=== PATIENT | female | born 1965 | race Caucasian/White ===

== ENCOUNTER 2019-06-11 13:51 | Outpatient (CLI) | payer BC, SELFPAY ==
--- NOTE | ~2019-06-11 | CT_ITS ---
EXAMINATION: CT abdomen pelvis w con DATE: 06/11/2019 14:31 INDICATION: Left lower quadrant abdominal pain. TECHNIQUE: Computed tomography (CT) of the abdomen and pelvis was performed with 100 mL Omnipaque 350 intravenous contrast. Automated exposure control and iterative reconstruction technique were employe d. The dose-length product was 773.35 mGy-cm. COMPARISON: None. FINDINGS: The visualized portions of the lung bases demonstrate mild atelectasis. No pleural effusion . The heart size is normal. No pericardial effusion. There is a small sliding hiatal hernia. The live r and spleen are normal. There are gallstones in the gallbladder, which is normal in size. The pancre as, adrenal glands, and kidneys are normal. There is an intrauterine device in expected position. The re are scattered diverticula in the colon. There is fat stranding around an epiploic appendage of sig moid colon, consistent with epiploic appendagitis. The appendix is normal. There are no pathologicall y enlarged lymph nodes. There is no free intraperitoneal fluid. There is severe thoracic spondylosis and moderate lumbar spondylosis. IMPRESSION: 1. Epiploic appendagitis of sigmoid colon. Reviewed, dictated and finalized at location A.
[2019-06-11 14:20] LABS: Estimated Glomerular Filt Rate > 60
[2019-06-11 15:14] LABS: Basophils Absolute Auto 0.1 K/mm3 (0.0-0.1); Basophils Percent Auto 0.7 % (0.2-1.2); Eosinophils Absolute Auto 0.3 K/mm3 (0-0.3); Eosinophils Percent Auto 3.7 % (0-4.4); Hematocrit 40.2 % (37.0-47.0); Immature Granulocyte Absolute 0.06 K/mm3 (0.00-0.031); Immature Granulocyte Percent A 0.7 % (0-0.5); Lymphocytes Absolute Auto 2.42 K/mm3 (0.9-3.2); Lymphocytes Percent Auto 26.5 % (18.3-44.2); Mean Corpuscular HGB Conc 32.3 g/dl (32-36); Mean Corpuscular Hemoglobin 29.5 pg (26-34); Mean Corpuscular Volume 91.4 fl (80-100); Mean Platelet Volume 8.9 fl (7.4-10.4); Monocytes Absolute Auto 0.7 K/mm3 (0.1-0.6); Monocytes Percent Auto 7.4 % (2.6-8.5); Neutrophils Absolute Auto 5.6 K/mm3 (1.3-6.7); Platelet Count Result 333 k/mm3 (150-375); Red Cell Distribution Width 12.6 % (11.5-14.5); White Blood Count 9.1 K/mm3 (4.5-10.0)
[2019-06-11 15:26] LABS: Alanine Aminotransferase 37 U/L (4-35); Albumin Level 4.2 g/dL (3.5-5.1); Alkaline Phosphatase 121 U/L (38-126); Aspartate Amino Transferase 36 U/L (14-36); Bilirubin,Total 0.6 mg/dL (0.2-1.3); Blood Urea Nitrogen 14 mg/dL (7-17); Calcium 9.8 mg/dL (8.4-10.2); Carbon Dioxide 28 mmol/L (22-30); Chloride 101 mmol/L (98-107); Estimated Glomerular Filt Rate > 60; Glucose 178 mg/dL (65-105); Potassium 3.9 mmol/L (3.4-5.0); Sodium 138 mmol/L (137-145)
== END 2019-06-11 13:52 | disposition home or self-care (01) ==
PROVIDERS: PCP Family Medicine; Visit Provider Family Medicine
DX: R10.32 Left lower quadrant pain (principal); K63.89 Other specified diseases of intestine
CPT/HCPCS: 36415; 74177; 80053; 85025; Q9967

== ENCOUNTER 2019-06-16 08:14 | Outpatient (CLI) | payer BC, SELFPAY ==
[2019-06-16 08:44] LABS: Hemoglobin A1C 6.9 % (<5.7)
[2019-06-16 08:45] LABS: Alanine Aminotransferase 32 U/L (4-35); Albumin Level 4.4 g/dL (3.5-5.1); Alkaline Phosphatase 110 U/L (38-126); Aspartate Amino Transferase 28 U/L (14-36); Bilirubin,Total 0.8 mg/dL (0.2-1.3)
== END 2019-06-16 08:15 | disposition home or self-care (01) ==
PROVIDERS: PCP Family Medicine; Visit Provider Nurse Practitioner Family
DX: R73.09 Other abnormal glucose (principal); R74.0 Nonspecific elevation of levels of transaminase and lactic acid dehydrogenase [LDH]
CPT/HCPCS: 36415; 80076; 83036

== ENCOUNTER → 2020-03-21 10:20 | Outpatient (CLI) | payer BC, SELFPAY ==
--- NOTE | ~2020-03-21 | MM_ITS ---
EXAMINATION: MM screening linsey BI w donna HISTORY: Screening mammogram TECHNIQUE: Craniocaudal and mediolateral oblique 3-D tomosynthesis images were obtained and synthetic 2-D images were generated. CAD analysis was submitted and interpreted. COMPARISON: 03/13/2016, 02/01/2012 bilateral digital screening mammogram examinations BREAST PARENCHYMAL COMPOSITION: There are scattered areas of fibroglandular density. FINDINGS: There is no evidence of suspicious mass, calcification, or architectural distortion to sugg est malignancy in either breast. There has been no suspicious interval change. IMPRESSION: 1. No mammographic evidence of malignancy. 2. Recommend routine screening mammography in one year. BI-RADS Category 1: Negative Reviewed, dictated and finalized at location A. OW UP SPECIALIST
--- NOTE | ~2020-03-21 | US_ITS ---
EXAMINATION: US transvaginal EXAM DATE: 03/21/2020 10:50 INDICATION: Pelvic pain. TECHNIQUE: Pelvic transabdominal and transvaginal sonogram was performed. There are multiple graysca le and Doppler images available for interpretation. Comparison is made to prior examination from 05/26. FINDINGS: Uterus measures 8.3 x 3.7 x 5.5 cm, with a focal region probably fibroid measuring 3 cm. T here is an IUD identified within the endometrial cavity. Endometrial stripe measures 5 mm, within nor mal limits. There is no free pelvic fluid. Right adnexa: The ovary measures 1.7 x 1.9 x 2.3 cm and is morphologically normal. Ovarian vascular f low confirmed. Left adnexa: The ovary measures 1.3 x 0.9 x 1.5 cm and is morphologically normal. Ovarian vascular fl ow confirmed. IMPRESSION: 1. IUD in position. 2. Fibroid. Reviewed, dictated and finalized at location B. NTRY OPERATIONS SPECIALIST
== END ==
PROVIDERS: PCP Family Medicine; Visit Provider Nurse Practitioner
DX: Z12.31 Encounter for screening mammogram for malignant neoplasm of breast (principal); D25.9 Leiomyoma of uterus, unspecified; Z97.5 Presence of (intrauterine) contraceptive device
CPT/HCPCS: 76830; 77063; 77067

== ENCOUNTER → 2020-10-18 14:30 | Outpatient (CLI) | payer BC, SELFPAY ==
--- NOTE | ~2020-10-18 | US_ITS ---
EXAMINATION: US transvaginal DATE: 10/18/2020 14:58 INDICATION: Postmenopausal bleeding TECHNIQUE: Multiple endovaginal sonographic images of the pelvis were obtained. COMPARISON: 03/21/2020 FINDINGS: The uterus measures 7.9 x 4.2 x 5.1 cm. A 2.3 x 2.1 cm hypoechoic mass of the right uterine fundus has the appearance of an intramural fibroid. A 1.0 x 0.7 x 0.7 cm hypoechoic mass in the left uterine fundus also has the appearance of an acute marrow fibroid. The endometrial complex measures 6 mm. An IUD is present in expected position. The ovaries are not visualized however no adnexal abnor mality is seen. There is no free fluid in the pelvis. IMPRESSION: 1. No sonographic correlate for the patient's symptoms. Reviewed, dictated and finalized at location B.
== END ==
PROVIDERS: Visit Provider Obstetrics & Gynecology Gynecology
DX: N95.0 Postmenopausal bleeding (principal)
CPT/HCPCS: 76830

== ENCOUNTER 2021-04-26 09:13 | Outpatient (CLI) | payer BC, SELFPAY ==
--- NOTE | 2021-04-26 10:00 | ECG_ITS ---
Measurements Intervals [place] Rate: 75 P: 51 WA: 163 QRS: 16 QRSD: 102 T: 40 QT: 415 QTc: 466 Interpretive Statements SINUS RHYTHM DELAYED PRECORDIAL R/S TRANSITION CONSIDER INFERIOR INFARCT, AGE INDETERMINATE ABNORMAL ECG Electronically Signed On 04-26-2021 10:13:41 INGREDIENT MIXER by Sreedhar Clements D.O.
[2021-04-26 10:25] LABS: Potassium 3.9 mmol/L (3.4-5.0)
== END 2021-04-26 09:14 | disposition home or self-care (01) ==
LOC: ANHLAB 09:17
DX: I10 Essential (primary) hypertension (principal)
CPT/HCPCS: 36415; 84132; 93005

== ENCOUNTER → 2021-11-28 11:00 | Outpatient (CLI) | payer BC, SELFPAY ==
--- NOTE | ~2021-11-28 | XR_ITS ---
EXAM: XR pelvis 1-2V, XR lumbar spine 2-3V, XR sacroiliac joints min 3V DATE: 11/28/2021 11:37 HISTORY: Chronic right lower back pain . COMPARISON: None available. FINDINGS: 5 nonrib-bearing lumbar-type vertebral bodies. Pedicles intact. Normal vertebral body alignment. Vert ebral body heights preserved. Mild L4-5 and moderate L5-S1 disc space narrowing. Multilevel moderate facet sclerosis and hypertrophy. No fracture or dislocation. Normal mineralization. No fracture or dislocation. No lytic or blastic lesion. Narrowing, sclerosis a nd osteophytosis of the bilateral SI joints. Mild bilateral hip joint space narrowing sclerosis and s ubchondral cyst formation greater on the right. Mild degenerative change of the pubic symphysis. No e rosion or periosteal change. IUD, in good position. Pelvic phleboliths. IMPRESSION: Bilateral symmetric sacroiliitis. Lower lumbar degenerative disc disease and facet arthro alberto. Mild bilateral hip osteoarthritis, worse on the right. Mild osteitis pubis. Reviewed, dictated and finalized at location K. IMPRESSION: Bilateral symmetric sacroiliitis. Lower lumbar degenerative disc di sease and facet arthropathy. Mild bilateral hip osteoarthritis, worse on the ri ght. Mild osteitis pubis. IMPRESSION: Bilateral symmetric sacroiliitis. Lower lumbar degenerative disc di sease and facet arthropathy. Mild bilateral hip osteoarthritis, worse on the ri ght. Mild osteitis pubis.
== END ==
PROVIDERS: PCP Family Medicine; Visit Provider Chiropractor
DX: M53.3 Sacrococcygeal disorders, not elsewhere classified (principal); M51.36 Other intervertebral disc degeneration, lumbar region; M16.0 Bilateral primary osteoarthritis of hip
CPT/HCPCS: 72100; 72170; 72202

== ENCOUNTER 2022-02-14 10:30 | Outpatient (RCR) | payer BC, SELFPAY | END 2022-03-20 11:32 | disposition home or self-care (01) | LOC: ANHDMC 10:30 | PROVIDERS: PCP Family Medicine; Visit Provider Family Medicine | DX: E11.65 Type 2 diabetes mellitus with hyperglycemia (principal); Z71.89 Other specified counseling | CPT/HCPCS: G0108 ==

== ENCOUNTER 2022-05-15 13:44 | Outpatient (CLI) | payer BC, SELFPAY ==
--- NOTE | 2022-05-15 13:53 | ECHO_ITS ---
Patient Info Name: Tonja Marc Age: 56 years : 1965 Gender: Female Ht: 63 in Wt: 167 lbs BSA: 1.86 m2 HR: 63 bpm BP: 129 / 85 mmHg Technical Quality: Fair Exam Date: 05/15/2022 2:15 PM Exam Location: [facility] Patient Status: Outpatient Admit Date: 05/15/2022 Staff Ordering Physician: Lula Shannon PAC Manager Sap: Harpal Lock RDCS, RT Attending Provider: Lula Shannon Referring Physician: Shiva CAUSEY; Exam Type: CA echo doppler color flow Study Info Indications R01.1 - Cardiac murmur, unspecified Complete two-dimensional, color flow and Doppler transthoracic echocardiogram is performed. Strain analysis performed. Summary 1. Complete two-dimensional, color flow and Doppler transthoracic echocardiogram is performed. 2. Left ventricular chamber dimension is normal. 3. Left ventricular systolic function is normal, estimated at 60-65%. 4. There is mild concentric increased left ventricular wall thickness. 5. The left ventricular diastolic function is grade I diastolic dysfunction. 6. E/e' 9 is minimally elevated. 7. Global longitudinal strain is normal at -17.9%. 8. There is trace tricuspid valve regurgitation. 9. Normal inferior vena cava with >50% collapse upon inspiration consistent with elevated right atrial pressure, 10 mmHg. 10. There is trivial pericardial effusion. Left Ventricle E/e' 9 is minimally elevated. Global longitudinal strain is normal at -17.9%. Left ventricular chamber dimension is normal. Left ventricular systolic function is normal, estimated at 60-65%. There is mild concentric increased left ventricular wall thickness. The left ventricular diastolic function is grade I diastolic dysfunction. Right Ventricle Right ventricular systolic function is normal and with normal TAPSE 1.9 cm. Right ventricular chamber dimension is normal. Left Atria Left atrial chamber dimension is normal. Right Atria Right atrial chamber dimension is normal. Aortic Valve The aortic valve is trileaflet. There is no aortic valve stenosis. There is no aortic valve regurgitation. Pulmonic Valve There is no pulmonic regurgitation. Mitral Valve There is no mitral valve stenosis. There is no mitral valve regurgitation. Tricuspid Valve RVSP is not calculated due to an inadequate TR jet. There is trace tricuspid valve regurgitation. Pericardium/Pleural There is trivial pericardial effusion. Inferior Vena Cava Normal inferior vena cava with >50% collapse upon inspiration consistent with elevated right atrial pressure, 10 mmHg. Aorta The aortic root size at the sinus of Valsalva is normal. Left Ventricular Outflow Tract Name Value Normal LVOT 2D LVOT Diameter 1.9 cm LVOT Doppler LVOT Peak Gradient 4 mmHg LVOT Mean Gradient 2 mmHg LVOT VTI 24 cm LVOT VTI/AV VTI Ratio 0.7 LVOT Stroke Volume 66 ml LVOT CO 4.1 l/min LVOT CI 2.2 l/min
== END 2022-05-15 13:45 | disposition home or self-care (01) ==
PROVIDERS: PCP Family Medicine; Visit Provider Physician Assistant Medical
DX: R01.1 Cardiac murmur, unspecified (principal)
CPT/HCPCS: 93306

== ENCOUNTER 2022-05-21 16:00 | Outpatient (RCR) | payer BC, SELFPAY | END 2022-06-17 13:53 | disposition home or self-care (01) | LOC: ANHDMC 16:00 | PROVIDERS: PCP Family Medicine; Visit Provider Family Medicine | DX: E11.65 Type 2 diabetes mellitus with hyperglycemia (principal); Z71.89 Other specified counseling | CPT/HCPCS: G0108 ==

== ENCOUNTER 2024-06-29 09:03 | Outpatient (RCR) | payer BC, SELFPAY | END 2024-09-20 13:56 | disposition home or self-care (01) | LOC: ANHDMC 09:03 | PROVIDERS: PCP Family Medicine; Visit Provider Internal Medicine | DX: E11.69 Type 2 diabetes mellitus with other specified complication (principal); E11.65 Type 2 diabetes mellitus with hyperglycemia; E66.9 Obesity, unspecified; Z71.89 Other specified counseling | CPT/HCPCS: G0108 ==

== ENCOUNTER 2024-08-02 03:28 | Emergency (ER) | payer BC, SELFPAY ==
[2024-08-02] VITALS (15 sets, daily range): BP systolic 130–220; BP diastolic 89–120; PULSE 58–87; RESP 5–23; TEMP 36.6–36.7; O2SAT 93–100
--- NOTE | ~2024-08-02 | XR_ITS ---
Portable chest x-ray Comparison: None Clinical History: Chest Findings: Lungs are clear, without focal consolidation or pleural effusion. Cardiomediastinal silho uette is unremarkable. Bones and soft tissues are unremarkable. Impression: Normal chest. Reviewed, dictated and finalized at location M. Impression: Normal chest.
--- NOTE | ~2024-08-02 | US_ITS ---
Limited ABDOMINAL ULTRASOUND (Doppler ultrasound interrogation techniques used as needed for this exmalachi m.) Ordering provider: Adam Mallory MD History: . Cholelithiasis, pericholecystic inflammation . Comparison: None. FINDINGS: PANCREAS: Not demonstrated. PORTAL VEIN: Hepatopedal flow demonstrated. LIVER: Normal size and increased echotexture. No focal hepatic lesions or perihepatic fluid collectio ns are identified. BILIARY DUCTS: No intra or extrahepatic biliary dilation. Common bile duct measures 3 mm in diameter which is normal for patient's age. GALLBLADDER: Cholelithiasis with large stones. One stone measures 2.5 x 0.7 x 1.8 cm No sludge, gallb ladder wall thickening or pericholecystic fluid. Wall thickness is 1.1 mm. Positive sonographic Shobha y's sign. FREE FLUID: None visualized within the upper abdomen. IMPRESSION: Cholelithiasis with positive Lock's sign which raises the possibility of cholecystitis although no wall thickening or pericholecystic fluid seen. Clinical correlation advised. Fat infiltration of the liver. Reviewed, dictated and finalized at location A. IMPRESSION: Cholelithiasis with positive Lock's sign which raises the possibility of chol ecystitis although no wall thickening or pericholecystic fluid seen. Clinical c orrelation advised. Fat infiltration of the liver.
--- NOTE | ~2024-08-02 | CT_ITS ---
Clinical Indication: Chest pain, dissection CT Scan of the Chest, Abdomen, and Pelvis with Contrast: Technique: Contiguous sections were acquired throughout the chest, abdomen, and pelvis after intraven ous administration of 100 cc of Omnipaque 350. Dose reduction technique was used on this scan by uti hennaing automated exposure control and iterative reconstruction technique. The dose-length product (DL P) was 748.81 mGy-cm. Findings: There is no evidence of any significant mediastinal, hilar or axillary lymphadenopathy. The mediastin al soft tissues appear normal. No pulmonary embolus. No aortic aneurysm or dissection. There is no evidence of pleural or pericardial effusion. The lungs are clear. No pulmonary nodules or infiltrates are noted. The liver, spleen, pancreas, adrenals and kidneys are within normal limits. Cholelithiasis noted. No evidence of aortic aneurysm or dissection. No lymphadenopathy. No bowel obstruction or bowel wall thickening. There is no evidence to suggest acute appendicitis. Urinary bladder is unremarkable. No pelvic mass. No ascites. Impression: No aortic aneurysm or dissection. Cholelithiasis. Reviewed, dictated and finalized at [facility]. Impression: No aortic aneurysm or dissection. Cholelithiasis.
--- NOTE | 2024-08-02 03:29 | ECG_ITS ---
Test Date: 2024-08-02 03:36:28 Measurements Intervals [place] Rate: 69 P: 26 WV: 151 QRS: 7 QRSD: 97 T: 50 QT: 407 QTc: 437 Interpretive Statements SINUS RHYTHM INFERIOR MYOCARDIAL INFARCTION , PROBABLY OLD [40+ ms Q WAVE AND/OR ST/T ABNORMALITY IN II/aVF] No previous ECG available for comparison Electronically Signed On 08-02-2024 06:43:56 CDT by Octavio Horowitz M.D.
--- OUTSIDE RECORDS SUMMARY | 2024-08-02 03:30 | XMS_ITS | Clinical Summary ---
Author Organization [facility] Address [address] [place] [id number] Care Team Providers Care Agricultural Agent Name Role Phone Elmer Rowe MD Primary Care Provider + [phone] Allergies No known active allergies Medications metFORMIN XR (GLUCOPHAGE XR) 500 mg 24 hr tablet Take 2 tablets (1,000 mg total) by mouth 2 (two) times a day 08/23/2022 Active Ozempic 2 mg/dose (8 mg/3 mL) pen injector injection Inject 2 mg under the skin once a week 08/23/2022 Active levothyroxine (SYNTHROID) 25 mcg tablet Take 1 tablet (25 mcg total) by mouth daily 08/14/2022 Active rosuvastatin (CRESTOR) 20 mg tablet Take 1 tablet (20 mg total) by mouth daily 08/14/2022 Active lisinopril-hydr oCHLOROthiazide (ZESTORETIC) 20-12.5 mg per tablet Take 2 tablets by mouth daily 08/14/2022 Active estradioL (ESTRACE) 1 mg tablet Take 1 tablet (1 mg total) by mouth daily 07/15/2022 Active multivitamin tablet Take by mouth daily Active Active Problems Problem Noted Date Diagnosed Date Cardiac murmur 08/27/2022 Assessment & Plan (08/27/2022 5:55 PM CDT): She has a benign sounding systolic murmur on exam which is likely a flow murmur based on the characteristics as well as recent outside echo which by report did not show any significant valvular disease or other pathology. Therefore no further workup needed for the murmur at this time Primary hypertension 08/27/2022 Assessment & Plan (08/27/2022 5:56 PM CDT): Blood pressure is currently suboptimally controlled on 2 agent regimen in the office - however discussed possibility of white coat hypertension given that she had been adequately controlled until more recent checks. Blood pressure goal given her age and comorbidities of diabetes would be less than 130/80 which we discussed. I recommended that she check her blood pressure daily for a 2 week or more timeframe at home to determine her ambulatory BP, and if elevated on ambulatory readings then we can escalate therapy - for now continue lisinopril-HCTZ 40-25 - can add amlodipine if ambulatory blood pressure above 130/80 LVH (left ventricular hypertrophy) 08/27/2022 Assessment & Plan (08/27/2022 5:54 PM CDT): By her outside echo report she has mild left ventricular hypertrophy which is most likely related to her history of chronic hypertension. 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 Gender Identity Not on file Sexual Orientation Not on file Obstetrics History Last Filed Vital Signs Vital Sign Reading Time Taken Comments Blood Pressure 138/88 08/27/2022 3:09 PM CDT Pulse 84 08/27/2022 3:03 PM CDT Temperature - - Respiratory Rate - - Oxygen Saturation - - Inhaled Oxygen Concentration - - Weight 78.9 kg (174 lb) 08/27/2022 3:03 PM CDT Height 160 cm (5' 3 ) 08/27/2022 3:03 PM CDT Body Mass Index 30.82 08/27/2022 3:03 PM CDT Plan of Treatment Health Maintenance Due Date Last Done Comments Breast Cancer Screening-Mammogram 1965 Cervical Cancer Screening 1965 Colon Cancer Screening-Colonoscopy 1965 Depression Screening 1965 Hepatitis C Screening 1965 Hepatitis B Screening 1981 Regular Well Visit/Exam 18-64 1981 Covid-19 Vaccine ( season) 2023 01/14/2022, 01/23/2021, 06/23/2020, Additional history exists Influenza Vaccine (#1) 2023 2, 01/23/2021, 01/28/2020 DTaP/Tdap/Td Vaccine (2 - Td or Tdap) 08/18/2031 08/17/2021 Zoster Vaccine Completed 01/14/2022, 01/28/2020 Pneumococcal vaccine <65 Aged Out No longer eligible based on patient's age to complete this [place] [id number] [place] [id number] [place] [phone] Care Teams Agricultural Agent Relationship Specialty Start Date End Date Elmer Rowe MD PCP - General Family Medicine 06/06/22
--- OUTSIDE RECORDS SUMMARY | 2024-08-02 03:30 | XMS_ITS | Clinical Summary ---
Author Organization [facility] Address [address], [address] [address] Phone Care Team Providers Care Director Of Rehabilitation Name Role Phone Elmer Rowe MD Primary Care Provider [phone] Medications polyethylene glycol (MIRALAX) Powder Use entire 255g bottle with 64oz of clear liquid as directed for colonoscopy prep. 255 g 0 7 Active Social History Tobacco Use Types Packs/Day Years Used Date Smoking Tobacco: Never Assessed Comments Unknown Sex and Gender Information Value Date Recorded Sex Assigned at Not on file Legal Sex Female 12:21 AM CDT Gender Identity Not on file Sexual Orientation Not on file Plan of Treatment Health Maintenance Due Date Last Done Comments Hepatitis C Virus (HCV) Screening 1965 TdaP Immunization 1965 Pap Smear 1984 Cervical Cancer Screening (CCS) 1993 HPV/Cotest 1993 Cologuard 2013 Immunochemical Fecal Occult Blood 2013 Mammogram 2013 Pneumococcal Immunization (5 0+ years) (1 of 1 - PCV) 2013 Zoster Immunization (1 of 2) 2013 Influenza Immunization (#1) 2023 SARS-COV-2 Immunization ( - season) 2023 Colonoscopy 05/08/2027 05/08/2017 Colorectal Cancer Screening 05/08/2027 Respiratory Syncytial Virus (RSV) Immunization (Adult) (1 - 1-dose 75+ series) 2038 05/08/2017 Hepatitis B Immunization Aged Out No longer eligible based on patient's age to complete this topic Meningococcal Immunization (ACWY) Aged Out No longer eligible based on patient's age to complete this topic Pneumococcal Immunization Combined Aged Out No longer eligible based on patient's age to complete this topic Rotavirus Immunization Aged Out No lo nger eligible based on patient's age to complete this topic Procedures Procedure Name Priority Date/Time Associated Diagnosis Comments COLONOSCOPY Routine 05/08/2017 from Last 3 Months or Most Recently Relevant to Health Maintenance Results * COLONOSCOPY (05/08/2017) Ángel Torey Tobias DO PROCEDURE/MINOR SURGICAL ORDERA BLES Final Result from Last 3 Months or Most Recently Relevant to Health Maintenance Insurance [facility] Care Teams Director Of Rehabilitation Relationship Specialty Start Date End Date Elmer Rowe MD [address] [place] [id number] PCP - General Family Medicine 03/28/16
--- OUTSIDE RECORDS SUMMARY | 2024-08-02 03:30 | XMS_ITS | Clinical Summary ---
Author Organization [facility] [employer] Address [address] [place] [address] Care Team Providers Care Aquatics Instructor Name Role Phone Elmer Rowe MD Primary Care Provider [phone] Source Comments [facility] [employer],non-owned Affiliates and Associated Physician Practices is amultiple site organization consisting of ambulatory clinics and hospital sitesin [place], [place], [place] and [place]. This disclosure is being madepursuant to the Care Everywhere program and may not contain all information available regarding this patient. Last updated 17.[facility] [employer] Allergies No known active allergies Medications * Be aware that medications may not be up to date on this document. Alwaysverify current medications with the patient. estradiol (ESTRACE) 0.5 MG tablet Take 1 tablet by mouth Active lisinopril-hydro CHLOROthiazide (PRINZIDE; ZESTORETIC) 10-12.5 MG tablet Take 1 tablet by mouth once daily Active Multiple Vitamin (MULTI-VITAMIN DAILY PO) Active BIOTIN PO Active Active Problems Problem Noted Date Diagnosed Date Osteoarthrosis 07/23/2021 Tear of lateral meniscus of knee 01/04/2019 Varicose veins of bilateral lower extremities wi th pain 03/05/2018 Family History Medical History Relation Name Comments CAD (Coronary Artery Disease) Father Diabetes - Type 2 Father None Known Maternal Grandfather None Known Maternal Grandmother Aneurysm, Brain Mother Diabetes - Type 2 Mother Hypertension Mother Osteoporosis Mother None Known Paternal Grandfather Diabetes - Type 2 Paternal Grandmother Relation Name Status Comments Father Maternal Grandfather Maternal Grandmother Mother Paternal Grandfather Paternal Grandmother Social History Tobacco Use Types Packs/Day Years Used Date Smoking Tobacco: Never Smokeless Tobacco: Never Alcohol Use Standard Drinks/Week Comments Yes 0 (1 standard drink = 0.6 oz pur e alcohol) Comments No Sex and Gender Information Value Date Recorded Sex Assigned at Not on file 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 Gender Identity Not on file Sexual Orientation Not on file Last Filed Vital Signs Vital Sign Reading Time Taken Comments Blood Pressure 126/76 10/10/2021 2:20 PM CDT Pulse - - Temperature - - Respiratory Rate - - Oxygen Saturation - - Inhaled Oxygen Concentration - - Weight 80.7 kg (178 lb) 10/10/2021 2:20 PM CDT Height 160 cm (5' 3 ) 10/10/2021 2:20 PM CDT Body Mass Index 31.53 10/10/2021 2:20 PM CDT Plan of Treatment Health Maintenance Due Date Last Done Comments COLOGUARD (AGES 45-75) - COL ON CA SCREENING 1965 COLON MONITORING 1965 COLONOSCOPY - COLON CA SCREENING 1963 CT COLONOGRAPHY - COLON CA SCREENING 1965 Colorectal Cancer Screening 1965 FIT - COLON CA SCREENING 1965 FLEX SIG - COLON CA SCREENING 1965 LIPID TESTING 1965 MAMMOGRAM 1963 HIV SCREENING 1978 HEPATITIS C SCREENING 05/15/1981 DTAP/TDAP/TD VACCINES (1 - Tdap) 1982 PNEUMOCOCCAL VACCINE 50+ (1 of 1 - PCV) 2013 ZOSTER VACCINE (1 of 2) 2013 PAP SMEAR 03/03/2020 03/03/2017 SCREENING FOR DIABETES 07/23/2021 COVID-19 VACCINE (1 - 2023-2 5 season) 2023 DEPRESSION SCREENING 03/31/2024 INFLUENZA VACCINE (Season Ended) 2024 Respiratory Syncytial Virus (RSV) Vaccine Pt: or over 60 yrs (1 - 1-dose 75+ series) 2038 HEPATITIS B VACCINE Aged Out No longe r eligible based on patient's age to complete this topic HIB VACCINE Aged Out No longer eligi ble based on patient's age to complete this topic HPV VACCINE Aged Out No longer eligi ble based on patient's age to complete this topic MENINGOCOCCAL (Group B) VACC INE SHARED DECISION-MAKING Aged Out No longer eligibl e based on patient's age to complete this topic MENINGOCOCCAL GROUPS A/C/Y/W VACCINE Aged Out No longer eligible b ased on patient's age to complete this topic Insurance [employer] Care Teams Aquatics Instructor Relationship Specialty Start Date End Date Elmer Rowe MD [address] [place] [id number] PCP - General 07/11/21
--- OUTSIDE RECORDS SUMMARY | 2024-08-02 03:30 | XMS_ITS | Clinical Summary ---
Author Organization [employer] [id number] [facility] Address [address] [place] [address] Care Team Providers Care Cell Inspector Name Role Phone Elmer Rowe MD Primary Care Provider Allergies No known active allergies Medications lisinopril-hydro CHLOROthiazide (ZESTORETIC) 20-12.5 mg tablet Take 1 Tablet by mouth daily. Active vitamin B complex (B COMPLEX 1) Tablet Active estradiol (ESTRACE) 0.5 mg tablet Take 1 Tablet by mouth. Active lisinopril (PRINIVIL) 20 mg tablet Take 20 mg by mouth. Active multivitamin (DAILY-PERNELL) tablet Active Active Problems Problem Noted Date Diagnosed Date Varicose veins of bilateral lower extremities wi th pain 03/05/2018 Family History Medical History Relation Name Comments Diabetes Father Heart Disease Father Other Maternal Grandfather Aneurys m Stroke Maternal Grandfather Aneurysm Mother Heart Disease Mother Stroke Mother Relation Name Status Comments Father Maternal Grandfather Mother Social History Tobacco Use Types Packs/Day Years Used Date Smoking Tobacco: Never Smokeless Tobacco: Never Comments No Sex and Gender Information Value Date Recorded Sex Assigned at Not on file Legal Sex Female 12:27 PM CDT Gender Identity Not on file Sexual Orientation Not on file Last Filed Vital Signs Vital Sign Reading Time Taken Comments Blood Pressure 115/76 03/05/2018 8:46 AM HOUSE VISITOR Pulse 85 03/05/2018 8:46 AM HOUSE VISITOR Temperature 36.9 C (98.4 F) 01/21/2018 12:03 PM CDT Respiratory Rate - - Oxygen Saturation 99% 01/21/2018 1:25 PM CDT Inhaled Oxygen Concentration - - Weight 72.6 kg (160 lb) 03/05/2018 8:46 AM HOUSE VISITOR Height 160 cm (5' 3 ) 03/05/2018 8:46 AM HOUSE VISITOR Body Mass Index 28.34 03/05/2018 8:46 AM HOUSE VISITOR Plan of Treatment Health Maintenance Due Date Last Done Comments DTAP/TDAP/TD VACCINES (1 - Tdap) 1982 HPV/Cotest (21-29) 1984 CERVICAL CANCER SCREENING 1993 HPV/Cotest (30-65) 1993 PAP SMEAR 1993 BREAST CANCER SCREENING 2003 COLORECTAL SCREENING 2008 Colorectal Cancer Screening 2008 FIT-DNA Q 3 years 2008 FIT/FOBT Q 1 year 2008 Flex Sig/CT Colonography Q 5 years 2008 ZOSTER VACCINE (1 of 2) 2013 INFLUENZA VACCINE (#1) 2023 RSV VACCINE (60+ or ) (1 - 1-dose 75+ series) 2038 Insurance [facility] BLUE ACCESS CHOICE Care Teams Cell Inspector Relationship Specialty Start Date End Date Elmer Rowe MD [address] [place] [address] PCP - General 12/08/17
--- OUTSIDE RECORDS SUMMARY | 2024-08-02 03:30 | XMS_ITS | Referral Summary ---
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
[2024-08-02 03:42] LABS: Basophils Absolute Auto 0.1 K/mm3 (0.0-0.1); Basophils Percent Auto 0.8 % (0.2-1.2); Eosinophils Absolute Auto 0.4 K/mm3 (0-0.3); Eosinophils Percent Auto 3.6 % (0-4.4); Hemoglobin 14.1 g/dL (12.0-15.0); Immature Granulocyte Absolute 0.04 K/mm3 (0.00-0.031); Immature Granulocyte Percent A 0.4 % (0-0.5); Lymphocytes Absolute Auto 3.22 K/mm3 (0.9-3.2); Lymphocytes Percent Auto 30.6 % (18.3-44.2); Mean Corpuscular HGB Conc 32.8 g/dl (32-36); Mean Corpuscular Volume 88.3 fl (80-100); Monocytes Absolute Auto 0.7 K/mm3 (0.1-0.6); Neutrophils Absolute Auto 6.1 K/mm3 (1.3-6.7); Neutrophils Percent Auto 57.6 % (45.5-73.1); Platelet Count Result 345 k/mm3 (150-375); Red Blood Count 4.87 M/mm3 (4.2-5.4); Red Cell Distribution Width 12.6 % (11.5-14.5); White Blood Count 10.5 K/mm3 (4.5-10.0)
--- NOTE | 2024-08-02 03:44 | ED_ITS ---
HPI - General Adult General Chief complaint: Chest Pain <Adam Mallory MD - Last Filed: 08/02/24 05:53> Stated complaint: heartburn x 2 hours going into the back <Adam Mallory MD - Last Filed: 08/02/24 05:53> Time Seen by Provider: 08/02/24 03:30 <Adam Mallory MD - Last Filed: 08/02/24 05:53> History of Present Illness HPI narrative: 59-year-old female with history of high cholesterol, hypertension, hypothyroidism present to the emergency department for evaluation for epigastric pain this been ongoing for the last 2 hours. Patient denies any history of heartburn but suspected she was having heartburn due to eating poorly during the [employer] ([employer] game. Patient does have history of hypertension but has not taken her blood pressure medications in the last few days due to simply for getting. And patient began having the epigastric pain she did take Tums with no improvement. Patient was hypertensive upon arrival to the emergency department. Patient states she is not a smoker and denies any prior history coronary artery disease. <Adam Mallory MD - Last Filed: 08/02/24 05:53> Related Data Home medications: Home Medications ?Medication ?Instructions ?Recorded ?Confirmed ?Last Taken ?Type estradiol 1 mg tablet 1 mg PO DAILY 10/17/21 02/17/24 Unknown History progesterone micronized 100 mg 100 mg PO QAM 05/13/24 Unknown History capsule <Adam Mallory MD - Last Filed: 08/02/24 05:53> Allergies/adverse reactions: Allergies Allergy/AdvReac Type Severity Reaction Status Date / Time metformin Allergy Severe Anaphylaxis Verified 06/30/24 09:25 <Adam Mallory MD - Last Filed: 08/02/24 05:53> FOR[facility]LY [facility] Past Medical History Medical History: Medical History BMI 29.0-29.9,adult Tear of meniscus of knee LLQ abdominal pain Essential (primary) hypertension Hypothyroidism Low vitamin D level <Adam Mallory MD - Last Filed: 08/02/24 05:53> Family History Family History: Family History Mother Cerebrovascular accident Brain aneurysm Diabetes mellitus Father Family history of diabetes mellitus in first degree relative Family history of coronary artery disease Acute myocardial infarction Sibling Diabetes mellitus <Adam Mallory MD - Last Filed: 08/02/24 05:53> Social History Social History: Social History Smoking status: Never smoker Second hand tobacco smoke exposure: Yes Alcohol intake: current Substance use: never Substance use type: does not use Current Housing: Decline to Answer Concerned About Future Housing: Decline to Answer Difficulty Paying Gas/Electric Bills: Decline to Answer Difficulty Paying for Meds: Decline to Answer Currently Unemployed: Decline to Answer Education: Decline to Answer Difficulty w/ Childcare or Family Care: Decline to Answer Living arrangements: with family Occupation/Education: occupation 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 3 hour troponin with very slight delta with 6 hour is undetectable. EKG remains unchanged. Right upper ultrasound resulted with cholelithiasis with positive Lock sign. No pericholecystic fluid or gallbladder wall thickening. Blood work with only a very mild elevation in alk phos 132. Patient's symptoms are controlled with p.o. medications and she is currently tolerating p.o. intake. She prefers outpatient management, I spoke with surgery who is agreeable this plan. They recommend she call the clinic to get an appointment scheduled. Will send in for oxycodone and Zofran to be used as needed. Discussed low-fat diet and appropriate return precautions. Patient is agreeable this plan. Discharged in stable condition. <Corin Tang MD - Last Filed: 08/02/24 12:19> Vital Signs Vital signs: Vital Signs Temperature 97.8 F 08/02/24 03:33 Pulse Rate 70 08/02/24 03:33 Respiratory Rate 20 08/02/24 03:33 Blood Pressure 220/113 H 08/02/24 03:33 Pulse Oximetry 98 08/02/24 03:33 Oxygen Delivery Room Air 08/02/24 03:33 Temperature 98.0 F 08/02/24 09:01 Pulse Rate 61 08/02/24 09:01 Respiratory Rate 18 08/02/24 09:01 Blood Pressure 177/98 H 08/02/24 09:01 Pulse Oximetry 97 08/02/24 09:01 Oxygen Delivery Room Air 08/02/24 03:38 <Adam Mallory MD - Last Filed: 08/02/24 05:53> Vital Signs Temperature 97.8 F 08/02/24 03:33 Pulse Rate 70 08/02/24 03:33 Respiratory Rate 20 08/02/24 03:33 Blood Pressure 220/113 H 08/02/24 03:33 Pulse Oximetry 98 08/02/24 03:33 Oxygen Delivery Room Air 08/02/24 03:33 Temperature 98.0 F 08/02/24 09:01 Pulse Rate 61 08/02/24 09:01 Respiratory Rate 18 08/02/24 09:01 Blood Pressure 177/98 H 08/02/24 09:01 Pulse Oximetry 97 08/02/24 09:01 Oxygen Delivery Room Air 08/02/24 03:38 <Corin Tang MD - Last Filed: 08/02/24 12:19> Medical Decision Making [facility] Narrative Medical decision making narrative: 59-year-old female presented emergency department for evaluation for epigastric pain. Patient's blood pressure was 220/113 on arrival. Patient was treated with IV hydralazine, sublingual nitro and her home p.o. dose of lisinopril/hydrochlorothiazide patient states this did help to improve her pain. Patient has afebrile but does have a leukocytosis of 10.5 with a stable hemoglobin of 14.1. Patient's INR is 0.9. Patient's lipase is not elevated. Patient has no elevation in T bili AST ALT but does have a mild elevation in alk-phos. Initial troponin was negative. CTA was ordered due to the complaint abdominal pain with hypertension this was negative for dissection but did show evidence pericholecystic inflammation. Upper quadrant ultrasound was requested. At time of sign-out patient's delta troponin and right upper quadrant ultrasound are pending. <Adam Mallory MD - Last Filed: 08/02/24 05:53> Vital Signs Vital Signs: Vital Signs Temperature 97.8 F 08/02/24 03:33 Pulse Rate 70 08/02/24 03:33 Respiratory Rate 20 08/02/24 03:33 Blood Pressure 220/113 H 08/02/24 03:33 Pulse Oximetry 98 08/02/24 03:33 Oxygen Delivery Room Air 08/02/24 03:33 Temperature 98.0 F 08/02/24 09:01 Pulse Rate 61 08/02/24 09:01 Respiratory Rate 18 08/02/24 09:01 Blood Pressure 177/98 H 08/02/24 09:01 Pulse Oximetry 97 08/02/24 09:01 Oxygen Delivery Room Air 08/02/24 03:38 <Adam Mallory MD - Last Filed: 08/02/24 05:53> Vital Signs Temperature 97.8 F 08/02/24 03:33 Pulse Rate 70 08/02/24 03:33 Respiratory Rate 20 08/02/24 03:33 Blood Pressure 220/113 H 08/02/24 03:33 Pulse Oximetry 98 08/02/24 03:33 Oxygen Delivery Room Air 08/02/24 03:33 Temperature 98.0 F 08/02/24 09:01 Pulse Rate 61 08/02/24 09:01 Respiratory Rate 18 08/02/24 09:01 Blood Pressure 177/98 H 08/02/24 09:01 Pulse Oximetry 97 08/02/24 09:01 Oxygen Delivery Room Air 08/02/24 03:38 <Corin Tang MD - Last Filed: 08/02/24 12:19> Lab Data Lab results reviewed: Yes I reviewed the patient's lab results. <Adam Mallory MD - Last Filed: 08/02/24 05:53> Result diagrams: 08/02/24 03:37 08/02/24 03:37 <Adam Mallory MD - Last Filed: 08/02/24 05:53> Labs: Lab Results 08/02/24 08/02/24 08/02/24 Range/Units 03:37 06:32 09:12 WBC 10.5 H (4.5-10.0) K/mm3 RBC 4.87 (4.2-5.4) M/mm3 Hgb 14.1 (12.0-15.0) g/dL Hct 43.0 (37.0-47.0) % MCV 88.3 (80-100) fl MCH 29.0 (26-34) pg MCHC 32.8 (32-36) g/dl RDW 12.6 (11.5-14.5) % Plt Count 345 (150-375) k/mm3 MPV 9.0 (7.4-10.4) fl Immature Gran % (Auto) 0.4 (0-0.5) % Neut % (Auto) 57.6 (45.5-73.1) % Lymph % (Auto) 30.6 (18.3-44.2) % [place] % (Auto) 7.0 (2.6-8.5) % Eos % (Auto) 3.6 (0-4.4) % Baso % (Auto) 0.8 (0.2-1.2) % Lymph # (Auto) 3.22 H (0.9-3.2) K/mm3 [place] # (Auto) 0.7 H (0.1-0.6) K/mm3 Eos # (Auto) 0.4 H (0-0.3) K/mm3 Baso # (Auto) 0.1 (0.0-0.1) K/mm3 Abs Immat Gran (auto) 0.04 H (0.00-0.031) K/mm3 Absolute Neuts (auto) 6.1 (1.3-6.7) K/mm3 Absolute Nucleated RBC 0.000 (0.0-0.012) K/mm3 Nucleated RBC % 0.0 (0.0-0.2) % PT 12.7 (11.1-14.7) Seconds INR 0.9 APTT 25.3 (22.3-36.8) Seconds Sodium 138 (137-145) mmol/L Potassium 3.4 (3.4-5.0) mmol/L Chloride 99 (98-107) mmol/L Carbon Dioxide 29 (22-30) mmol/L Anion Gap 10 (4-12) mmol/L BUN 13 (7-17) mg/dL Creatinine 0.59 L (0.7-1.0) mg/dL Estim Creat Clear Calc 84 ml/min Estimated GFR > 60 (59 - ) Glucose 236 H (65-110) mg/dL Calcium 11.0 H (8.4-10.2) mg/dL Total Bilirubin 0.9 (0.2-1.3) mg/dL AST 28 (14-36) U/L ALT 32 (6-35) U/L Alkaline Phosphatase 132 H (38-126) U/L Troponin I < 0.012 0.016 D < 0.012 D (0.000-0.034) ng/mL Total Protein 8.0 (6.3-8.2) g/dL Albumin 4.6 (3.5-5.1) g/dL Lipase 93 (23-300) U/L <Adam Mallory MD - Last Filed: 08/02/24 05:53> Lab Results 08/02/24 08/02/24 08/02/24 Range/Units 03:37 06:32 09:12 WBC 10.5 H (4.5-10.0) K/mm3 RBC 4.87 (4.2-5.4) M/mm3 Hgb 14.1 (12.0-15.0) g/dL Hct 43.0 (37.0-47.0) % MCV 88.3 (80-100) fl MCH 29.0 (26-34) pg MCHC 32.8 (32-36) g/dl RDW 12.6 (11.5-14.5) % Plt Count 345 (150-375) k/mm3 MPV 9.0 (7.4-10.4) fl Immature Gran % (Auto) 0.4 (0-0.5) % Neut % (Auto) 57.6 (45.5-73.1) % Lymph % (Auto) 30.6 (18.3-44.2) % [place] % (Auto) 7.0 (2.6-8.5) % Eos % (Auto) 3.6 (0-4.4) % Baso % (Auto) 0.8 (0.2-1.2) % Lymph # (Auto) 3.22 H (0.9-3.2) K/mm3 [place] # (Auto) 0.7 H (0.1-0.6) K/mm3 Eos # (Auto) 0.4 H (0-0.3) K/mm3 Baso # (Auto) 0.1 (0.0-0.1) K/mm3 Abs Immat Gran (auto) 0.04 H (0.00-0.031) K/mm3 Absolute Neuts (auto) 6.1 (1.3-6.7) K/mm3 Absolute Nucleated RBC 0.000 (0.0-0.012) K/mm3 Nucleated RBC % 0.0 (0.0-0.2) % PT 12.7 (11.1-14.7) Seconds INR 0.9 APTT 25.3 (22.3-36.8) Seconds Sodium 138 (137-145) mmol/L Potassium 3.4 (3.4-5.0) mmol/L Chloride 99 (98-107) mmol/L Carbon Dioxide 29 (22-30) mmol/L Anion Gap 10 (4-12) mmol/L BUN 13 (7-17) mg/dL Creatinine 0.59 L (0.7-1.0) mg/dL Estim Creat Clear Calc 84 ml/min Estimated GFR > 60 (59 - ) Glucose 236 H (65-110) mg/dL Calcium 11.0 H (8.4-10.2) mg/dL Total Bilirubin 0.9 (0.2-1.3) mg/dL AST 28 (14-36) U/L ALT 32 (6-35) U/L Alkaline Phosphatase 132 H (38-126) U/L Troponin I < 0.012 0.016 D < 0.012 D (0.000-0.034) ng/mL Total Protein 8.0 (6.3-8.2) g/dL Albumin 4.6 (3.5-5.1) g/dL Lipase 93 (23-300) U/L <Corin Tang MD - Last Filed: 08/02/24 12:19> Imaging Data Radiologist's impression: CTA chest impression Negative CTA chest: CT abdomen pelvis impression: Cholelithiasis with potential pericholecystic inflammation. Correlation of the right upper quadrant ultrasound is recommended to exclude acute cholecystitis. <Adam Mallory MD - Last Filed: 08/02/24 05:53> Critical Care Time Critical Care Time Critical Care Time: No <Corin Tang MD - Last Filed: 08/02/24 12:19> Discharge Plan Discharge Clinical Impression: Hypertension, Acute epigastric pain, Cholelithiasis <Adam Mallory MD - Last Filed: 08/02/24 05:53> Patient Disposition: Home <Adam Mallory MD - Last Filed: 08/02/24 05:53> Condition: Stable <Adam Mallory MD - Last Filed: 08/02/24 05:53> Instructions: Antibiotic Form, Gallstones (ED), Low Fat Diet (ED) <Adam Mallory MD - Last Filed: 08/02/24 05:53> Additional Instructions: Please follow-up closely with General surgery by calling the number below to schedule an appointment. Please take the Zofran as needed for nausea and the oxycodone as needed for pain. You may use Tylenol and ibuprofen for pain control as well. Please follow a low-fat diet to help prevent more pain related to gallstones. If your symptoms worsen or other concerning symptoms arise, please return to the ER. <Adam Mallory MD - Last Filed: 08/02/24 05:53> Patient Language: Pashto <Adam Mallory MD - Last Filed: 08/02/24 05:53> Prescriptions: New ondansetron 4 mg tablet,disintegrating 4 mg PO Q8H PRN (Reason: nausea and vomiting) Qty: 14 0RF oxycodone 5 mg tablet 5 mg PO Q6H PRN (Reason: pain) Qty: 14 0RF No Action (DME) lancets Misc See Rx Instructions .ROUTE .MEDSUPPLY Qty: 100 6RF Rx Instructions: AC HS progesterone micronized 100 mg capsule 100 mg PO QAM (DME) lancets [OneTouch Delica Plus Lancet] 33 gauge misc See Rx Instructions .Route Qty: 200 12RF Rx Instructions: 4 times daily Gvoke HypoPen 2-Pack 1 mg/0.2 mL auto-injector 1 mg subcut ONCE Qty: 0.4 0RF Rx Instructions: as a single dose; may repeat once after 15 minutes if no response insulin aspart U-100 [Novolog FlexPen U-100 Insulin] 100 unit/mL (3 mL) insulin pen See Rx Instructions .ROUTE .COMPLEX MDD 30 Qty: 21 2RF Rx Instructions: 6 units before meals plus sliding scale no meal then no shot insulin glargine [Lantus Solostar U-100 Insulin] 100 unit/mL (3 mL) insulin pen 24 unit subcut DAILY Qty: 24 3RF Baqsimi 3 mg/actuation spray,non-aerosol 3 mg intranasal ONCE Qty: 2 0RF Rx Instructions: as a single dose dapagliflozin propanediol [Farxiga] 10 mg tablet 10 mg PO DAILY Qty: 90 3RF (DME) FreeStyle Luis Miguel 3 Plus Sensor Device See Rx Instructions .Route Qty: 6 4RF Rx Instructions: once every 15 days levothyroxine 25 mcg tablet 25 mcg PO DAILY Qty: 90 2RF Ozempic 1 mg/dose (4 mg/3 mL) pen injector 1 mg subcut WEEKLY Qty: 9 1RF (DME) pen needle, diabetic 32 gauge x 5/32 needle See Rx Instructions .ROUTE .MEDSUPPLY Qty: 1200 12RF Rx Instructions: 4 times daily (DME) OneTouch Verio test strips Strip See Rx Instructions .Route Qty: 100 12RF Rx Instructions: 4 times daily estradiol 1 mg tablet 1 mg PO DAILY lisinopril-hydrochlorothiazide 20-12.5 mg tablet See Rx Instructions .ROUTE .COMPLEX Qty: 180 0RF Dose Instruction: TAKE 2 TABLETS BY MOUTH EVERY DAY Rx Instructions: TAKE 2 TABLETS BY MOUTH EVERY DAY rosuvastatin 20 mg tablet 20 mg PO DAILY Qty: 90 3RF meloxicam 15 mg tablet 15 mg PO DAILY Qty: 30 3RF <Adam Mallory MD - Last Filed: 08/02/24 05:53> Follow-up/Referrals: Carmen Richardson MD [Physician] - Elmer Rowe MD [Primary Care Provider] - <Adam Mallory MD - Last Filed: 08/02/24 05:53>
[2024-08-02] MEDS: ASPIRIN 81 MG CHEWABLE TABLET 324 MG PO (03:45)
[2024-08-02] MEDS: lisinopriL 20 MG TABLET PO (03:46)
[2024-08-02] MEDS: FAMOTIDINE 20 MG/2 ML VIAL IV PUSH (03:46)
[2024-08-02] MEDS: PANTOPRAZOLE SODIUM IV 40 MG VIAL IV PUSH (03:46)
[2024-08-02] MEDS: NITROGLYCERIN SL 0.4 MG TABLET SUBLINGUAL (03:46)
--- OUTSIDE RECORDS SUMMARY | 2024-08-02 03:51 | XMS_ITS | Clinical Summary ---
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
--- OUTSIDE RECORDS SUMMARY | 2024-08-02 03:51 | XMS_ITS | Clinical Summary ---
Author Organization [facility] Address [address] [place] [address] Care Team Providers Care Director Of Email Marketing Name Role Phone Elmer Rowe MD Primary Care Provider [phone] Source Comments [facility],non-owned Affiliates and Associated Physician Practices is amultiple site organization consisting of ambulatory clinics and hospital sitesin [place], [place], [place] and [place]. This disclosure is being madepursuant to the Care Everywhere program and may not contain all information available regarding this patient. 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
--- OUTSIDE RECORDS SUMMARY | 2024-08-02 03:51 | XMS_ITS | Referral Summary ---
Author Organization 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
--- OUTSIDE RECORDS SUMMARY | 2024-08-02 03:51 | XMS_ITS | Clinical Summary ---
Author Organization [employer] [id number] [facility] Address [address] [place] [address] Care Team Providers Care Chemical Supervisor Name Role Phone Elmer Rowe MD Primary Care Provider [phone] Allergies No known active allergies Medications lisinopril-hydro [...] Comments Blood Pressure 115/76 03/05/2018 8:46 AM ANALYTIC PROGRAMMER Pulse 85 03/05/2018 8:46 AM ANALYTIC PROGRAMMER Temperature 36.9 C (98.4 F) 01/21/2018 12:03 PM CDT Respiratory Rate - - Oxygen Saturation 99% 01/21/2018 1:25 PM CDT Inhaled Oxygen Concentration - - Weight 72.6 kg (160 lb) 03/05/2018 8:46 AM ANALYTIC PROGRAMMER Height 160 cm (5' 3 ) 03/05/2018 8:46 AM ANALYTIC PROGRAMMER Body Mass Index 28.34 03/05/2018 8:46 AM ANALYTIC PROGRAMMER Plan of Treatment Health Maintenance Due Date [...] (1 - 1-dose 75+ series) 2038 Insurance [facility] BLUE ACCESS CHOICE Care Teams Chemical Supervisor Relationship Specialty Start Date End Date Elmer Rowe MD [address] [place] [address] PCP - General 12/08/17
--- OUTSIDE RECORDS SUMMARY | 2024-08-02 03:51 | XMS_ITS | Clinical Summary ---
Author Organization [facility] Address [address], [address] [address] Phone Care Team Providers Care Drum Sander Name Role Phone Elmer Rowe MD Primary Care Provider [phone] Medications polyethylene glycol (MIRALAX) Powder Use entire [...] Most Recently Relevant to Health Maintenance Insurance [facility] Care Teams Drum Sander Relationship Specialty Start Date End Date Elmer Rowe MD [address] [place] [id number] PCP - General Family Medicine 03/28/16
[2024-08-02 03:59] LABS: INR 0.9; Prothrombin Time 12.7 Seconds (11.1-14.7)
[2024-08-02 04:00] LABS: Partial Thromboplastin Time 25.3 Seconds (22.3-36.8)
[2024-08-02 04:06] LABS: Alanine Aminotransferase 32 U/L (6-35); Albumin Level 4.6 g/dL (3.5-5.1); Alkaline Phosphatase 132 U/L (38-126); Anion Gap 10 mmol/L (4-12); Aspartate Amino Transferase 28 U/L (14-36); Bilirubin,Total 0.9 mg/dL (0.2-1.3); Blood Urea Nitrogen 13 mg/dL (7-17); Carbon Dioxide 29 mmol/L (22-30); Chloride 99 mmol/L (98-107); Estimated CRCL calculation 84 ml/min; Estimated Glomerular Filt Rate > 60; Glucose 236 mg/dL (65-110); Lipase 93 U/L (23-300); Potassium 3.4 mmol/L (3.4-5.0); Sodium 138 mmol/L (137-145)
[2024-08-02] MEDS: hydroCHLOROthiazide 12.5 MG CAPSULE PO (04:08)
[2024-08-02 04:17] LABS: Troponin I < 0.012 ng/mL (0.000-0.034)
[2024-08-02] MEDS: BELLADONNA ALK/PHENOB ELIX 10 ML, MAG HYDROX/ALUMINUM HYD/SIMETH 30 ML, LIDOCAINE 2% VI... PO (04:34)
[2024-08-02] MEDS: hydrALAZINE HCL 20 MG/ML VIAL 10 MG IV PUSH (05:00)
--- NOTE | 2024-08-02 05:00 | PC.NURSE ---
Pt to CT at this time.
[2024-08-02] MEDS: HYDROmorphone HCL INJ (*CRX) 2 MG/ML VIAL 1 MG IV PUSH (05:52)
[2024-08-02] MEDS: ONDANSETRON INJ 4 MG/2 ML VIAL IV PUSH (06:03)
--- NOTE | 2024-08-02 06:32 | ECG_ITS ---
Test Date: 2024-08-02 06:33:45 Measurements Intervals [place] Rate: 67 P: 21 ME: 147 QRS: -3 QRSD: 102 T: 34 QT: 409 QTc: 433 Interpretive Statements SINUS RHYTHM Compared to ECG 08/02/2024 03:36:28 Myocardial infarct finding no longer present Electronically Signed On 08-02-2024 06:42:56 CDT by Octavio Horowitz M.D.
[2024-08-02 07:29] LABS: Troponin I 0.016 ng/mL (0.000-0.034)
--- NOTE | 2024-08-02 09:16 | ECG_ITS ---
Test Date: 2024-08-02 09:18:45 Measurements Intervals [place] Rate: 64 P: 22 [place]: 147 QRS: -10 QRSD: 106 T: 42 QT: 427 QTc: 443 Interpretive Statements SINUS RHYTHM MINIMAL VOLTAGE CRITERIA FOR LVH, CONSIDER NORMAL VARIANT [MEETS CRITERIA IN ONE OF: R(aVL), S(V1), R(V5), R(V5/V6)+S(V1)] OTHERWISE UNREMARKABLE ECG Compared to ECG 08/02/2024 06:33:45 No significant changes Electronically Signed On 08-02-2024 15:41:00 CDT by Coy Zapien M.D.
[2024-08-02 09:52] LABS: Troponin I < 0.012 ng/mL (0.000-0.034)
[2024-08-02] MEDS: HYDROcodone/acetaminophen (*CRX) 5-325 MG TABLET 1 TAB PO (10:57)
[2024-08-02] MEDS: ONDANSETRON HCL ODT 4 MG TABLET PO (10:57)
--- NOTE | 2024-08-02 10:58 | PC.NURSE ---
Pt request to sit up in the chair. Pt states unable to get comfortable on stretcher. RN spoke with pt concerning POC. Administering po pain meds with anticipation of being discharge home.Pt agreeable
== END 2024-08-02 12:30 | disposition home or self-care (01) ==
PROVIDERS: Emergency Provider Emergency Medicine; PCP Family Medicine
DX: K80.20 Calculus of gallbladder without cholecystitis without obstruction (principal); I10 Essential (primary) hypertension; R10.13 Epigastric pain; E03.9 Hypothyroidism, unspecified; E78.00 Pure hypercholesterolemia, unspecified; Z77.22 Contact with and (suspected) exposure to environmental tobacco smoke (acute) (chronic); K76.0 Fatty (change of) liver, not elsewhere classified; R94.31 Abnormal electrocardiogram [ECG] [EKG]
CPT/HCPCS: 36415; 71045; 71275; 74174; 76705; 80053; 83690; 84484; 85025; 85610; 85730; 93005; 96374; 96375; 96376; 99284; A9270; J0360; J1171; J2405; J2470; Q9967

== ENCOUNTER 2024-08-10 08:25 | Outpatient (CLI) | payer BC, SELFPAY ==
--- OUTSIDE RECORDS SUMMARY | 2024-08-10 08:35 | XMS_ITS | Clinical Summary ---
Author Organization [facility] Address [address], [address] [address] Phone Care Team Providers Care Vehicle Assembly Inspector Name Role Phone Elmer Rowe MD Primary Care Provider [phone] Medications polyethylene glycol (MIRALAX) Powder Use entire [...] Most Recently Relevant to Health Maintenance Insurance [facility] Care Teams Vehicle Assembly Inspector Relationship Specialty Start Date End Date Elmer Rowe MD [address] [place] [id number] PCP - General Family Medicine 03/28/16
--- OUTSIDE RECORDS SUMMARY | 2024-08-10 08:35 | XMS_ITS | Referral Summary ---
Author Organization [facility] Address [address] [place] [phone] Care Team Providers Care Maintenance Shop Welder Name Role Phone Elmer Rowe MD Primary Care Provider + [phone] Allergies No known active allergies Medications metFORMIN [...] on file Legal Sex Female 1:09 PM DIRECTOR OF THERAPY SERVICES Gender Identity Not on file Sexual Orientation [...] Plan of Treatment Not on file Insurance [facility]ICE [place] [address] [place] [address] Care Teams Maintenance Shop Welder Relationship Specialty Start Date End Date Elmer Rowe MD PCP - General Family Medicine 06/06/22
--- OUTSIDE RECORDS SUMMARY | 2024-08-10 08:35 | XMS_ITS | Clinical Summary ---
Author Organization [employer] [facility] [facility] Address [address] [place] [address] Care Team Providers Care Catalogue Compiler Name Role Phone Elmer Rowe MD Primary Care Provider [phone] Allergies No known active allergies Medications lisinopril-hydro [...] Comments Blood Pressure 115/76 03/05/2018 8:46 AM DIRECTOR SHIP Pulse 85 03/05/2018 8:46 AM DIRECTOR SHIP Temperature 36.9 C (98.4 F) 01/21/2018 12:03 PM CDT Respiratory Rate - - Oxygen Saturation 99% 01/21/2018 1:25 PM CDT Inhaled Oxygen Concentration - - Weight 72.6 kg (160 lb) 03/05/2018 8:46 AM DIRECTOR SHIP Height 160 cm (5' 3 ) 03/05/2018 8:46 AM DIRECTOR SHIP Body Mass Index 28.34 03/05/2018 8:46 AM DIRECTOR SHIP Plan of Treatment Health Maintenance Due Date [...] (1 - 1-dose 75+ series) 2038 Insurance [facility] BLUE ACCESS CHOICE Care Teams Catalogue Compiler Relationship Specialty Start Date End Date Elmer Rowe MD [address] [place] [address] PCP - General 12/08/17
--- OUTSIDE RECORDS SUMMARY | 2024-08-10 08:35 | XMS_ITS | Clinical Summary ---
Author Organization [facility] Address [address] [place] [address] Care Team Providers Care Window Maker Name Role Phone Elmer Rowe MD Primary Care Provider [phone] Source Comments [facility],non-owned Affiliates and Associated Physician Practices is amultiple site organization consisting of ambulatory clinics and hospital sitesin [place], [place], [place] and [place]. This disclosure is being madepursuant to the Care Everywhere program and may not contain all information available regarding this patient. Last updated 17.[facility] Allergies No known active allergies Medications * [...] on file Legal Sex Female 6:25 AM CREPE MAKER Gender Identity Not on file Sexual Orientation [...] complete this topic Insurance [employer] Care Teams Window Maker Relationship Specialty Start Date End Date Elmer Rowe MD [address] [place] [id number] PCP - General 07/11/21
--- OUTSIDE RECORDS SUMMARY | 2024-08-10 08:35 | XMS_ITS | Clinical Summary ---
Author Organization [facility] D Address [address] [place] [address] Care Team Providers Care Certified Caregiver Name Role Phone Elmer Rowe MD Primary Care Provider + [phone] Allergies No known active allergies Medications metFORMIN [...] on file Legal Sex Female 1:09 PM WELDER TACK Gender Identity Not on file Sexual Orientation [...] complete [place] [address] [place] [address] [place] [address] Care Teams Certified Caregiver Relationship Specialty Start Date End Date Elmer Rowe MD PCP - General Family Medicine 06/06/22
[2024-08-10 09:17] LABS: Amylase 55 U/L (30-110)
[2024-08-10 10:58] LABS: Anion Gap 9 mmol/L (4-12); Blood Urea Nitrogen 16 mg/dL (7-17); Calcium 9.3 mg/dL (8.4-10.2); Carbon Dioxide 25 mmol/L (22-30); Chloride 104 mmol/L (98-107); Estimated Glomerular Filt Rate > 60; Glucose 229 mg/dL (65-110); Potassium 3.9 mmol/L (3.4-5.0); Sodium 138 mmol/L (137-145)
== END 2024-08-10 08:26 | disposition home or self-care (01) ==
PROVIDERS: PCP Family Medicine; Referring Provider Anesthesiology; Visit Provider Surgery
DX: K81.1 Chronic cholecystitis (principal)
CPT/HCPCS: 36415; 80048; 82150; 86850; 86900; 86901

== ENCOUNTER 2024-08-16 01:48 | Day surgery (SDC) | payer BC, SELFPAY ==
[2024-08-09 10:50] VITALS: BMI 29.2
--- NOTE | 2024-08-09 11:00 | PC.NURSE ---
Report to the Outpatient Waiting Room, entrance under the green pavilion located off [facility], at time _0800_ on date _[id number]_. Planned Procedure Time: _1000_. Time changes happen often and if your time is changed the preop area will call you the afternoon before. - You and your visitor will be asked to self-screen and do not enter if you have any COVID symptoms. Please call surgeon if you need to reschedule. - A mask is optional within the hospital at this time. Patients may have clear liquids (water, carbonated beverages, clear teas, apple juice) until 3 hours prior to surgery with a maximum of 20 ounces. - No food from midnight until time of surgery and no smoking, or chewing tobacco (or any form of nicotine). No chewing gum, candy or mints. Take only the following medications with a SIP of water on the morning of surgery: __Levothyroxine. DO NOT STOP ANY OF YOUR OTHER PRESCRIPTION MEDICATIONS PRIOR TO SURGERY EXCEPT THE FOLLOWING Hold all vitamins and supplements for 3 days per anesthesiologist. No diabetic medications morning of surgery. Medications to discontinue per physician Date to take last dose Please no make-up, nail togolese, hairspray, perfume, deodorant, or body powder the day of surgery. No jewelry (including any body piercings) or valuables the day of surgery, leave them at home. Please take a shower or bath the night before, or the morning of, surgery with an antibacterial soap. Wear comfortable, loose fitting clothing. - Jewelry must be removed prior to entering the operating room. Rings and piercings that are not removed may be cut off. - The hospital will not accept responsibility for valuables. - Please leave all valuables, including medications, at home the day of surgery. If you are going home after surgery, a licensed driver/refuse collector must drive you home. - NO public transportation without another adult if you receive anesthesia. - We recommend that an adult stay with you for 24 hours following discharge. - We also recommend that you do not drive, make important decision, drink alcoholic beverages, or take any drugs that were not prescribed by your health care provider for at least 24 hours after your discharge time. Follow any additional instructions given to you from your surgeon. Telephone instructions given to __Beth___and asked if any additional questions and then verbalized understanding. Patient advised to call surgeon office or pre surgery nurse liaison [phone] if any additional questions.
[2024-08-16] VITALS (13 sets, daily range): BP systolic 94–143; BP diastolic 52–87; PULSE 64–97; RESP 12–18; TEMP 36.2–36.6; O2SAT 93–100
--- OUTSIDE RECORDS SUMMARY | 2024-08-16 01:51 | XMS_ITS | Clinical Summary ---
Author Organization [facility] Address [address] [place] [address] Care Team Providers Care Coal Briquette Machine Operator Name Role Phone Elmer Rowe MD Primary Care Provider Source Comments [facility]non-owned Affiliates and Associated Physician Practices is amultiple site organization consisting of ambulatory clinics and hospital sitesin [place], [place], [place] and [place]. This disclosure is being madepursuant to the Care Everywhere program and may not contain all information available regarding this patient. Last updated 17.[facility] Allergies No known active allergies Medications * [...] on file Legal Sex Female 6:25 AM DIRECTOR OF UNDERGRADUATE ADMISSIONS Gender Identity Not on file Sexual Orientation [...] complete this topic Insurance [employer] Care Teams Coal Briquette Machine Operator Relationship Specialty Start Date End Date Elmer Rowe MD [address] [place] [phone] PCP - General 07/11/21
--- OUTSIDE RECORDS SUMMARY | 2024-08-16 01:51 | XMS_ITS | Clinical Summary ---
Author Organization [facility] Address [address], [address] [address] Phone Care Team Providers Care Farm Service Adviser Name Role Phone Elmer Rowe MD Primary Care Provider [phone] Medications polyethylene glycol (MIRALAX) Powder Use entire [...] Most Recently Relevant to Health Maintenance Insurance [facility] Care Teams Farm Service Adviser Relationship Specialty Start Date End Date Elmer Rowe MD [address] [place] [phone] PCP - General Family Medicine 03/28/16
--- OUTSIDE RECORDS SUMMARY | 2024-08-16 01:51 | XMS_ITS | Referral Summary ---
Author Organization [facility] Address [address] [place] [phone] Care Team Providers Care Data Center Consultant Name Role Phone Elmer Rowe MD Primary Care Provider + [phone] Allergies No known active allergies Medications metFORMIN [...] on file Legal Sex Female 1:09 PM VACUUM PLASTIC FORMING MACHINE OPERATOR Gender Identity Not on file Sexual Orientation [...] Plan of Treatment Not on file Insurance [facility] ACCESS CHOICE [place] [address] [place] [address] Care Teams Data Center Consultant Relationship Specialty Start Date End Date Elmer Rowe MD PCP - General Family Medicine 06/06/22
--- OUTSIDE RECORDS SUMMARY | 2024-08-16 01:51 | XMS_ITS | Clinical Summary ---
Author Organization [facility] D Address [address] [place] [address] Care Team Providers Care Public Relations Player Name Role Phone Elmer Rowe MD Primary Care Provider + [phone] Allergies No known active allergies Medications metFORMIN [...] on file Legal Sex Female 1:09 PM DATABASE ANALYST Gender Identity Not on file Sexual Orientation [...] complete this [place] [phone] [place] [address] [place] [address] Care Teams Public Relations Player Relationship Specialty Start Date End Date Elmer Rowe MD PCP - General Family Medicine 06/06/22
--- OUTSIDE RECORDS SUMMARY | 2024-08-16 01:51 | XMS_ITS | Clinical Summary ---
Author Organization [employer] [address] [facility] Address [address] [place] [address] Care Team Providers Care Stamping Bench Die Maker Name Role Phone Elmer Rowe MD Primary Care Provider [phone] Allergies No known active allergies Medications lisinopril-hydro [...] Comments Blood Pressure 115/76 03/05/2018 8:46 AM REPRESENTATIVE PHLEBOTOMY SERVICES Pulse 85 03/05/2018 8:46 AM REPRESENTATIVE PHLEBOTOMY SERVICES Temperature 36.9 C (98.4 F) 01/21/2018 12:03 PM CDT Respiratory Rate - - Oxygen Saturation 99% 01/21/2018 1:25 PM CDT Inhaled Oxygen Concentration - - Weight 72.6 kg (160 lb) 03/05/2018 8:46 AM REPRESENTATIVE PHLEBOTOMY SERVICES Height 160 cm (5' 3 ) 03/05/2018 8:46 AM REPRESENTATIVE PHLEBOTOMY SERVICES Body Mass Index 28.34 03/05/2018 8:46 AM REPRESENTATIVE PHLEBOTOMY SERVICES Plan of Treatment Health Maintenance Due Date [...] (1 - 1-dose 75+ series) 2038 Insurance [facility] BLUE ACCESS CHOICE Care Teams Stamping Bench Die Maker Relationship Specialty Start Date End Date Elmer Rowe MD [address] [place] [address] PCP - General 12/08/17
[2024-08-16] MEDS: ACETAMINOPHEN 500 MG TABLET 1000 MG PO (08:30)
[2024-08-16] MEDS: KETOROLAC 15 MG/ML VIAL (*BKC) IV PUSH (08:35)
[2024-08-16] MEDS: LACTATED RINGERS 1,000 ML 30 ML IV CONT ×2 (08:35→12:34)
[2024-08-16 08:39] LABS: Glucose Point of Care 196 mg/dl (65-105)
[2024-08-16] MEDS: INDOCYANINE GREEN 25 MG VIAL WITH DILUENT 3.75 MG IV PUSH (08:40)
--- NOTE | 2024-08-16 09:48 | P.PNAN_ITS ---
Anes - Initial Pre Proc Eval Procedure: Operation Date: 08/16/24 10:00 Proposed Procedures p Robotic Assisted Cholecystectomy - Carmen Richardson MD Date/Time: 08/16/24 09:48 Surgeon: Carmen Richardson MD Pre Op Diagnosis: chronic cholecystitis Patient Data Age: 59 Gender: F Height: 1.6 m Weight: 79 kg Last Vital Signs Temp 36.6 C 08/16/24 08:49 Pulse 97 08/16/24 08:49 Resp 16 08/16/24 08:49 BP 113/82 08/16/24 08:49 Pulse Ox 98 08/16/24 08:49 O2 Del Method Room Air 08/16/24 08:49 Allergies Allergy/AdvReac Type Severity Reaction Status Date / Time metformin Allergy Severe Anaphylaxis Verified 08/16/24 08:45 Home Medications Medication Instructions Recorded Confirmed Type estradiol 1 mg tablet 1 mg PO DAILY 10/17/21 08/16/24 History lancets #100 ea 01/30/22 08/09/24 Rx rosuvastatin 20 mg tablet 20 mg PO DAILY #90 tabs 11/10/23 08/16/24 Rx meloxicam 15 mg tablet 15 mg PO DAILY #30 tabs 11/17/23 08/16/24 Rx lisinopril 20 See Rx Instructions .Route 02/17/24 08/16/24 Rx mg-hydrochlorothiazide 12.5 mg .COMPLEX #180 tabs tablet progesterone micronized 100 mg 100 mg PO QAM 05/13/24 08/16/24 History capsule lancets 33 gauge (OneTouch Delica #200 ea 06/09/24 08/09/24 Rx Plus Lancet) blood sugar diagnostic (OneTouch #100 ea 06/30/24 08/09/24 Rx Verio test strips) blood-glucose sensor (FreeStyle #6 ea 06/30/24 08/09/24 Rx Luis Miguel 3 Plus Sensor device) dapagliflozin propanediol 10 mg 10 mg PO DAILY #90 tabs 06/30/24 08/16/24 Rx tablet (Farxiga) insulin aspart U-100 100 unit/mL See Rx Instructions .Route 06/30/24 08/16/24 Rx (3 mL) subcutaneous pen (Novolog .COMPLEX #21 mL FlexPen U-100 Insulin aspart) insulin glargine 100 unit/mL (3 24 unit (0.24 mL) subcut DAILY #24 06/30/24 08/16/24 Rx mL) subcutaneous pen (Lantus mL Solostar U-100 Insulin) levothyroxine 25 mcg tablet 25 mcg PO DAILY #90 tabs 06/30/24 08/16/24 Rx pen needle, diabetic 32 gauge x #1,200 ea 06/30/24 08/09/24 Rx 5/32 semaglutide 1 mg/dose (4 mg/3 mL) 1 mg (0.75 mL) subcut WEEKLY #9 mL 06/30/24 08/16/24 Rx subcutaneous pen injector (Ozempic) ondansetron 4 mg disintegrating 4 mg PO Q8H PRN nausea and 08/02/24 08/09/24 Rx tablet vomiting #14 tabs oxycodone 5 mg tablet 5 mg PO Q6H PRN pain #14 tabs 08/02/24 08/09/24 Rx Laboratory Tests 08/16/24 08:36 POC Capillary Glucose 196 H mg/dl (65-105) Patient hx anesthesia problems: none Family hx anesthesia problems: none Results Review: All pre-operative results and documents have been reviewed as part of the pre- operative evaluation. [facility] Past Medical History Medical History Hypertension Gallbladder disorder Diabetes BMI 29.0-29.9,adult Tear of meniscus of knee LLQ abdominal pain Essential (primary) hypertension Hypothyroidism Low vitamin D level Family History Family History Mother Cerebrovascular accident Brain aneurysm Diabetes mellitus Stomach cancer Father Family history of diabetes mellitus in first degree relative Family history of coronary artery disease Acute myocardial infarction Diabetes mellitus Heart disease Hypertension Sibling Diabetes mellitus Grandparent Diabetes mellitus Social History Social History Smoking status: Never smoker Second hand tobacco smoke exposure: Yes Alcohol intake: current Substance use: never Substance use type: does not use Current Housing: Decline to Answer Concerned About Future Housing: Decline to Answer Difficulty Paying Gas/Electric Bills: Decline to Answer Difficulty Paying for Meds: Decline to Answer Currently Unemployed: Decline to Answer Education: Decline to Answer Difficulty w/ Childcare or Family Care: Decline to Answer Living arrangements: with family Occupation/Education: occupation 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 Informed Consent: The patient's anesthetic plan and its attendant risks and benefits were discussed with the patient/family/POA. Questions were solicited and answers provided to the satisfaction of the patient/family/POA.
--- NOTE | 2024-08-16 09:50 | WPDHPUPDATE1 ---
History and Physical Update Update Date/Time: 08/16/24 09:50 History and Physical has been reviewed, including an updated exam of the patient. There are NO changes in the patient's condition. Risks, benefits, and alternatives have been discussed and questions answered. Patient agrees to proceed with procedure.
[2024-08-16] MEDS: ceFAZolin 2 GM/D5W 50 ML 2 GM/50 ML BAG IVPB (10:00)
[2024-08-16] MEDS: BUPIVACAINE/EPINEPHRINE 0.5% 50 ML VIAL 30 ML INFILTRATE (10:26)
[2024-08-16] MEDS: SCOPOLAMINE 1 MG PATCH 1 PATCH TRANSDERM (10:34)
--- NOTE | 2024-08-16 12:39 | W.PM.PROC2 ---
Procedure Note - Detailed Date of Procedure 08/16/24 Pre-op Diagnosis chronic cholecystitis, cholelithiasis Post-op Diagnosis Same Procedure Performed Robotic assisted cholecystectomy Surgeon Carmen Richardson MD Anesthesia General Indications 59 year old female presenting the office complaining intermittent right upper quadrant pain, nausea, bloating. Workup including imaging significant for chronic cholecystitis, cholelithiasis. Findings Severe cholecystitis, cholelithiasis Description of Procedure The patient was taken to the operating room and placed in the supine position. After adequate induction of general anesthesia, the patient was prepped and draped in the normal sterile fashion. A time-out was then done to verify the patient's identity, as well as the procedure being performed. I began by making a 8 mm incision in the periumbilical region. A Veress needle was then placed in the peritoneal cavity and CO2 gas was insufflated. After adequate pneumoperitoneum was achieved, the Veress needle was removed and a 8 mm Optiview trocar was placed under direct visualization. Once into the abdominal cavity, the introducer was removed and the laparoscope was placed through this trocar site. Under direct visualization, I placed a further 8 mm port in the left mid abdomen and 2x 8 mm ports in the right mid abdomen. The robot was then docked to these ports sites. I then went to the console. The gallbladder was then identified and noted to be severely inflamed and distended. Given these findings, the gallbladder was decompressed and hydrops cholecystitis was noted at this point. Once decompressed, I was able to place a grasper at the dome of the gallbladder and this was retracted up and over the liver. A 2nd retractor was used to grasp the infundibulum and retracted laterally. This allowed visualization and dissection of the triangle of Calot. There were significant adhesions to the gallbladder and these were taken down with the cautery. The dissection was exceedingly difficult and the common bile duct and common hepatic duct were noted in the field. A 5 mm acute care certified nursing assistant port was placed in the left abdomen to assist with suction and dissection. I then began dissection around the triangle Calot. I first identified the cystic duct, I was able to visualize the entirety of the duct from its proximal insertion into the gallbladder to its distal junction with the common hepatic/common bile duct junction. Of note, the cystic duct was very short. I did use the firefly visualization at this point to confirm the anatomy. The proximal cystic duct was then further skeletonized, clipped, and transected. Again, the anatomy was super difficult to visualize given the amount of inflammation. A large artery was noted in the field and carefully dissected out of the way. There was a posterior branch of this artery that I was also able to avoid an dissect out of the field. Of note, the cystic artery was not visualized. I then again used firefly to confirm anatomy and no aberrant anatomy was noted. I then used the Bovie cautery to take down the peritoneal attachments of the gallbladder off the liver bed. The dissection of the gallbladder was again difficult. Once the gallbladder specimen was completely detached, an Endo pouch was placed through the left 8 mm port site and the gallbladder specimen was placed in the endo-pouch and subsequently removed. This incision had to be extended to allow extraction. I then re-examined the right upper quadrant. Hemostasis was noted in the liver bed and the clips were noted to be in good position on the duct. No other pathology was seen in the right upper quadrant. I did place some hemostatic powder in the liver bed given the difficult dissection and inflammation. All instruments were then removed and the robot was undocked. I then closed the extraction incision at the fascial level using a Francisco cone and 0 Vicryl suture under direct visualization. The abdomen was then desufflated and all ports were removed. All port sites were then closed with 4-0 Monocryl subcuticular suture. Dermabond was placed on each was wound. The patient tolerated the procedure well and was extubated in the operating room postop. The patient will now be transferred to the recovery room in stable condition. Please note given the amount of inflammation and difficult anatomy that this case took approximately 2 hours which is 4 times more than an average cholecystectomy. Estimated Blood Loss 50 Drains No Packing No Pathology Yes Complications No immediate complications Condition Stable Disposition PACU [facility] Billing Surgery - Charge Forward: Surgery Billing
[2024-08-16 12:49] LABS: Glucose Point of Care 255 mg/dl (65-105)
[2024-08-16] MEDS: INSULIN HUMAN REGULAR (*BKC) 100 UNITS/ML 6 UNITS SUB-Q (12:58)
--- NOTE | 2024-08-16 13:04 | SUR.PHASEI ---
DR. COBURN NOTIFED RE: BLOOD SUGAR 255; ORDERED 6 UNITS REGULAR INSULIN SQ; ALSO NOTIFIED RE: OXYGEN SATS 92% ON 10 LITERS OXYGEN; INSTRUCTED TO START INCENTIVE SPIROMETER WHEN AWAKE.
[2024-08-16] MEDS: fentaNYL CITRATE INJ (*CRX) 100 MCG/2 ML VIAL 25 MCG IV PUSH (13:45)
[2024-08-16] MEDS: ONDANSETRON INJ 4 MG/2 ML VIAL IV PUSH (14:24)
== END 2024-08-16 15:45 | disposition home or self-care (01) ==
PROVIDERS: PCP Family Medicine; Visit Provider Surgery
PROC: 0FT44ZZ Resection of Gallbladder, Percutaneous Endoscopic Approach (ICD-10-PCS; CPT 47562; principal; 2024-08-16 10:00)
DX: K80.00 Calculus of gallbladder with acute cholecystitis without obstruction (principal); K82.1 Hydrops of gallbladder; K66.0 Peritoneal adhesions (postprocedural) (postinfection); I10 Essential (primary) hypertension; E03.9 Hypothyroidism, unspecified; E11.9 Type 2 diabetes mellitus without complications; E55.9 Vitamin D deficiency, unspecified; E66.9 Obesity, unspecified; Z68.30 Body mass index [BMI] 30.0-30.9, adult; Z79.84 Long term (current) use of oral hypoglycemic drugs; Z79.4 Long term (current) use of insulin; Z79.85 Long-term (current) use of injectable non-insulin antidiabetic drugs; Z79.891 Long term (current) use of opiate analgesic; Z80.0 Family history of malignant neoplasm of digestive organs; Z82.49 Family history of ischemic heart disease and other diseases of the circulatory system
CPT/HCPCS: 47562; S2900; 82948; 88304; A9270; J0690; J1100; J1171; J1200; J1815; J1885; J2003; J2250; J2405; J2704; J3010; J7030; J7120

== ENCOUNTER 2024-09-16 12:33 | Outpatient (CLI) | payer BC, SELFPAY ==
--- NOTE | ~2024-09-16 | MM_ITS ---
EXAMINATION: MM screening linsey BI w donna HISTORY: Screening TECHNIQUE: Craniocaudal and mediolateral oblique 3-D tomosynthesis images were obtained and synthetic 2-D images were generated. CAD analysis was submitted and interpreted. COMPARISON: Comparison to multiple prior studies sequentially, with oldest reviewed study dated 03/13/2016. BREAST PARENCHYMAL COMPOSITION: Not dense: There are scattered areas of fibroglandular density. FINDINGS: There is no evidence of suspicious mass, calcification, or architectural distortion to sugg est malignancy in either breast. There has been no suspicious interval change. IMPRESSION: 1. No mammographic evidence of malignancy. 2. Recommend routine screening mammography in one year. BI-RADS Category 1: Negative Reviewed, dictated and finalized at location A.
== END 2024-09-16 12:34 | disposition home or self-care (01) ==
LOC: MICIMG 12:34
PROVIDERS: PCP Family Medicine; Visit Provider Nurse Practitioner
DX: Z12.31 Encounter for screening mammogram for malignant neoplasm of breast (principal)
CPT/HCPCS: 77063; 77067

== ENCOUNTER 2024-09-22 07:57 | Outpatient (CLI) | payer BC, SELFPAY ==
--- NOTE | ~2024-09-22 | DEXA_ITS ---
Bone Density Report Name: REMI GERBER Age: 59 Sex: Female Ethnicity: White Date of : 1965 Indication: postmenopausal; screening for osteoporosis; parental hip fracture; Referring Provider: Adalberto, Mckenna Study: Bone densitometry was performed. Exam Date: September 22, 2024 Accession number: [id number] Bone Density: Region BMD T-score Z-score Classification AP Spine(L1-L4) 1.009 -0.3 1.2 Normal Femoral Neck (Left) 0.607 -2.2 -0.8 Osteopenia Total Hip (Left) 0.955 0.1 1.1 Normal Femoral Neck (Right) 0.617 -2.1 -0.8 Osteopenia Total Hip (Right) 0.912 -0.2 0.8 Normal Total Hip Mean 0.933 -0.1 1.0 Normal World Health Organization criteria for BMD impression classify patients as: Normal (T-score at or above -1.0), Osteopenia (T-score between -1.0 and -2.5), or Osteoporosis (T-score at or below -2.5). 10-year Fracture Risk(1): Major Osteoporotic Fracture 19% Hip Fracture 1.4% Reported Risk Factors: [place] (), Neck BMD=0.607, BMI=32.4, parental fracture (1) FRAX(R) Version 3.08. Fracture probability calculated for an untreated patient. Fracture probability may be lower if the patient has received treatment. Clinical Information Provided by Patient: Parent has had a hip fracture Has used the following medications: Vitamin D Patient maximum height was 63 Menopause Age: 53 Drinks caffeinated beverages Onset of menses at age 12 Number of children 5 Impression: The patient has low bone mass, based on the Left Femoral Neck T-score. The patient has an estimated ten-year risk of hip fracture of 1.4% and an estimated ten-year risk of major fracture of 19%, based on the WHO FRAX algorithm. The patient has risk factors, including: parental hip fracture. Discussion: BONE DENSITY IS LOW AT ONE OR MORE SKELETAL SITES. This patient's lowest T-score is low at one or more skeletal sites. It meets the World Health Organization's (WHO) criteria for ?low bone mass? (T-score between -1.0 and -2.5). The patient's 10-year risk of fracture as calculated by FRAX is less than the threshold where pharmacological therapy is recommended by the National Osteoporosis Foundation (NOF). However, all treatment decisions require clinical judgment and consideration of individual patient factors, including patient preferences, comorbidities, previous drug use, risk factors not captured in the FRAX model (e.g., frailty, falls, vitamin D deficiency, increased bone turnover, interval significant decline in bone density) and possible under or overestimation of fracture risk by FRAX. The patient should follow a healthful lifestyle (good nutrition with adequate calcium and vitamin D, and appropriate weight-bearing exercise). Follow-Up: Consider repeating this study in 2 to 3 years to reassess this patient's status, or sooner if there is some new clinical indication. Reported by: CHRIS on 09/22/2024 8:16:00 AM. Reviewed, dictated and finalized at location A.
== END 2024-09-22 07:58 | disposition home or self-care (01) ==
LOC: MICIMG 07:57
PROVIDERS: PCP Family Medicine; Visit Provider Nurse Practitioner
DX: Z13.820 Encounter for screening for osteoporosis (principal); Z78.0 Asymptomatic menopausal state; M85.852 Other specified disorders of bone density and structure, left thigh; M85.851 Other specified disorders of bone density and structure, right thigh
CPT/HCPCS: 77080

== ENCOUNTER 2024-12-16 08:30 | Outpatient (CLI) | payer BC, SELFPAY ==
--- NOTE | ~2024-12-16 | XR_ITS ---
EXAMINATION: XR knee LT min 4V, 12/16/2024 8:34 CDT HISTORY: M25.562 - Pain in left knee COMPARISON: No comparisons available. Findings: No acute fracture or malalignment. Moderate tricompartmental degenerative changes with small effusion Soft tissues unremarkable. Impression: No acute fracture or malalignment. Reviewed, dictated and finalized at location A. Impression: No acute fracture or malalignment.
== END 2024-12-16 08:31 | disposition home or self-care (01) ==
LOC: MICIMG 08:31
PROVIDERS: PCP Family Medicine; Visit Provider Nurse Practitioner Family
DX: M25.562 Pain in left knee (principal)
CPT/HCPCS: 73564